=== PATIENT | male | born 1965 | race Caucasian/White ===

== ENCOUNTER 2024-04-13 08:41 | Day surgery (SDC) | payer BC ==
[~2024-04-13 08:41] MED LIST: Sodium Chloride 0.9% 10 ML Syringe FLUSH PRN; Sodium Chloride 0.9% 10 ML Syringe FLUSH SCH
[2024-04-13] MEDS ORDERED: Propofol 200 MG/20 ML SDV ONE (08:58)
[2024-04-13] MEDS ORDERED: fentaNYL 100 MCG/2 ML SDV ONE ×2 (08:59→10:34)
[2024-04-13] MEDS ORDERED: Midazolam 1 MG/ML 2 ML SDV ONE (08:59)
[2024-04-13] MEDS ORDERED: Acetaminophen 325 MG Tab PO ONE (09:00)
[2024-04-13] MEDS ORDERED: Rocuronium 50 MG/5 ML Vial ONE (09:00)
[2024-04-13] MEDS ORDERED: ceFAZolin 2 GM Vial ONE (09:01)
[2024-04-13] MEDS ORDERED: Lidocaine 1% 2 ML ONE (09:02)
[2024-04-13] MEDS ORDERED: Ropivacaine 0.5% 5 MG/ML 30 ML SDV ONE (09:04)
[2024-04-13] MEDS ORDERED: dexmedeTOMIDine HCl 200 MCG/2 ML SDV ONE (09:05)
[2024-04-13] MEDS ORDERED: Dexamethasone 4 MG/ML 5 ML MDV ONE (09:05)
[2024-04-13] MEDS ORDERED: EPINEPHrine 1 MG/ML SDV ONE (09:06)
[2024-04-13] MEDS: Lactated Ringers 1,000 ML IV SCH (09:10)
[2024-04-13] MEDS: Pregabalin 25 MG Cap PO ONE (09:26)
[2024-04-13] MEDS: oxyCODONE ER 10 MG TAB.ER PO ONE (09:27)
[2024-04-13] MEDS: Acetaminophen 325 MG Tab PO ONE (09:28)
[2024-04-13] MEDS ORDERED: Ondansetron 4 MG/2 ML SDV ONE ×2 (10:10→11:07)
[2024-04-13] MEDS ORDERED: ePHEDrine 50 MG/ML SDV ONE (10:36)
[2024-04-13] MEDS ORDERED: Lactated Ringers 1,000 ML ONE (10:54)
[2024-04-13] MEDS: Tranexamic Acid 1,000 MG/10 ML Vial ONE (11:06)
[2024-04-13] MEDS: Vancomycin 1 GM SDV ONE (11:06)
[2024-04-13] MEDS ORDERED: oxyCODONE 5 MG Tab PO PRN (11:21)
[2024-04-13] MEDS ORDERED: Ondansetron 4 MG/2 ML SDV IVPUSH PRN (11:34)
[2024-04-13] MEDS ORDERED: HYDROmorphone 0.5 MG/0.5 ML Syringe IVPUSH PRN (11:34)
[2024-04-13] MEDS ORDERED: fentaNYL 100 MCG/2 ML SDV IVPUSH PRN (11:34)
== END 2024-04-13 14:20 | disposition home or self-care (01) ==
LOC: JD.SDS 08:41
PROVIDERS: ATTEND Orthopaedic Surgery
DX: M19.011 Primary osteoarthritis, right shoulder (principal); E78.2 Mixed hyperlipidemia; Z79.899 Other long term (current) drug therapy
CPT/HCPCS: 23472; 64415; 76000; 97110; 97116; 97161; A9270; C1713; C1769; C1776; J0171; J0690; J1100; J2250; J2405; J2704; J2795; J3010; J7120; J3490